=== PATIENT | female | born 1960 | race American Indian/Alaskan Native ===

== ENCOUNTER 2016-10-12 00:50 | Emergency (ER) | payer OTHER ==
[2016-10-12 02:03] LABS: Basophils % (Auto) 0.8 % (0.0-1.8); Eosinophils % (Auto) 1.5 % (0.0-4.3); Hematocrit 41.1 % (30.3-42.9); Hemoglobin 13.6 gm/dl (10.1-14.3); Mean Corpuscular HGB Conc 33 % (30-34); Mean Corpuscular Hemoglobin 29 pg (28-32); Mean Corpuscular Volume 89 fl (79-97); Platelet Count 182 K/mm3 (140-440); Red Blood Count 4.64 M/mm3 (3.65-5.03); Red Cell Distribution Width 13.9 % (13.2-15.2); White Blood Count 7.1 K/mm3 (4.5-11.0)
[2016-10-12 02:23] LABS: Anion Gap 18 mmol/L; BUN/Creatinine Ratio 25.55; Blood Urea Nitrogen 23 mg/dL (7-17); Calcium 8.9 mg/dL (8.4-10.2); Carbon Dioxide 22 mmol/L (22-30); Chloride 102.2 mmol/L (98-107); Glucose 108 mg/dL (65-100); Potassium 4.3 mmol/L (3.6-5.0); Sodium 138 mmol/L (137-145)
[2016-10-12 03:00] LABS: Bacteria,Urine 1+ /HPF (Negative); Bilirubin,Urine NEG (Negative); Blood,Urine MOD (Negative); Ketones,Urine NEG (Negative); Leukocyte Esterase,Urine LG (Negative); Mucus,Urine FEW /HPF; Nitrite,Urine NEG (Negative); Urobilinogen,Urine < 2.0 mg/dL (<2.0)
[2016-10-12] MEDS ORDERED: TORADOL IM ONE (06:34)
[2016-10-12] MEDS ORDERED: NORCO 5/325 PO ONE (06:34)
--- NOTE | 2016-10-12 07:05 | Emergency Department Report ---
HPI - HPI HPI: 55-year-old -Citizen Of [place] female comes in for complaint of left-sided flank pain 3 days. Patient reports that she has shortness of breath when she takes a deep breath because of the pain of her left flank. Patient reports that she took 2 muscle relaxer which helped a little bit and she took ibuprofen. Patient reports that she seemed a little bit of blood in her urine. Patient reports that the pain is colicky and it radiates from the left flank down to the left pubic area. She denies any fever no chills no nausea no vomiting. <DEISY ESPINAL - Last Filed: 10/12/16 06:53> <ANNETTE PEARSON - Last Filed: 10/12/16 09:58> - General Chief Complaint: Back Pain/Injury ED Past Medical Hx - Past Medical History Previous Medical History?: No Additional medical history: Uterine Fibroids - Surgical History Past Surgical History?: Yes Additional Surgical History: D&C, Tubal ligation, C-sections - Social History Smoking Status: Current Every Day Smoker Substance Use Type: None <DEISY ESPINAL - Last Filed: 10/12/16 06:53> <ANNETTE PEARSON - Last Filed: 10/12/16 09:58> - Medications Home Medications: Home Medications Medication Instructions Recorded Confirmed Last Taken Type Ibuprofen 800 mg PO TID 10/29/14 10/29/14 Unknown History Penicillin Vk 500 mg PO QID 10/29/14 10/29/14 Unknown History Robitussin Dm 10 ml PO QID 10/29/14 10/29/14 Unknown History Bacitracin [Bacitracin Ophth] 1 applicatio OP TID #1 tube 12/16/14 Unknown Rx Polyvinyl Alcohol [Artificial 2 drops OP Q1H #1 bottle 12/16/14 Unknown Rx Tears] Cephalexin [Keflex] 500 mg PO Q6HR #40 capsule 05/14/15 Unknown Rx HYDROcodone/APAP 5-325 [Glenoma 1 each PO Q6HR PRN #20 tablet 05/14/15 Unknown Rx 5-325 mg TAB] Ibuprofen [Motrin] 600 mg PO Q8H PRN #50 tablet 05/14/15 Unknown Rx HYDROcodone/APAP 5-325 [Glenoma 1 each PO Q6HR PRN #12 tablet 10/12/16 Unknown Rx 5/325] Ibuprofen [Motrin] 600 mg PO Q8H PRN #20 tablet 10/12/16 Unknown Rx Nitrofurantoin Toombs/M-Cryst 100 mg PO Q12HR #14 capsule 10/12/16 Unknown Rx [Macrobid CAP] ED Review of Systems ROS: Stated complaint: BACK PAIN Other details as noted in HPI <DEISY ESPINAL - Last Filed: 10/12/16 06:53> ROS: Stated complaint: BACK PAIN Other details as noted in HPI <ANNETTE PEARSON - Last Filed: 10/12/16 09:58> Physical Exam - Physical Exam Vital Signs: Vital Signs 10/12/16 10/12/16 01:22 06:46 Temperature 98.4 F 97.7 F Pulse Rate 81 80 Respiratory 18 18 Rate Blood Pressure 110/70 Blood Pressure 101/66 [Right] O2 Sat by Pulse 100 100 Oximetry Physical Exam: GENERAL: Alert and oriented x3, no apparent distress, +arthralgia Gait, HEAD: Head is normocephalic and a-traumatic. EYES: Extra ocular muscles are intact. Pupils are equal, round, and reactive to light and accommodation. EARS: symetrical, atraumatic, non tender, ear canal clear and moderate cerumen, tympanic membrance non inflamed. gross auditory nml bilaterally. NOSE: Nose symetrical, Nontender,Nares appeared normal. MOUTH:Mouth is well hydrated and without lesions. Tonsils nonerythematous or swollen, Uvula midline, Tongue not elevated. Mucous membranes are moist. Posterior pharynx clear, no exudate or lesions. Patent airways. NECK: Supple. Non edematous, No carotid bruits. No lymphadenopathy or thyromegaly. LUNGS: Symetrical with respiration, No wheezing, no rales or crackles, CTAB. HEART: S1, S2 present, regular rate and rhythm without murmur, no rubs, no gallops. ABDOMEN: No organomegaly was noted,Positive bowel sounds, soft, and non- distended. . Nontender to palpation on all Quadrants, + CVA tenderness on the left EXTREMITIES/MUSCULOSKELETAL: No cyanosis, clubbing, rash, lesions or edema. Full ROM bilaterally. UE/LE Pulses 2+ bilaterally. LE and UE 5+ strength bilaterally NEUROLOGIC: No focal Deficit, Cranial nerves II through XII are grossly intact. No loss of sensation, No facial droop, PSYCHIATRIC: Mood is congruent with affect, denies suicidal or homicidal ideations. SKIN: Warm and dry, No lesions, No ulceration or induration present <DEISY ESPINAL - Last Filed: 10/12/16 06:53> - Physical Exam Vital Signs: Vital Signs 10/12/16 10/12/16 01:22 06:46 Temperature 98.4 F 97.7 F Pulse Rate 81 80 Respiratory 18 18 Rate Blood Pressure 110/70 Blood Pressure 101/66 [Right] O2 Sat by Pulse 100 100 Oximetry <PEARSONANNETTE - Last Filed: 10/12/16 09:58> ED Course Vital Signs 10/12/16 10/12/16 01:22 06:46 Temperature 98.4 F 97.7 F Pulse Rate 81 80 Respiratory 18 18 Rate Blood Pressure 110/70 Blood Pressure 101/66 [Right] O2 Sat by Pulse 100 100 Oximetry <DEISY ESPINAL - Last Filed: 10/12/16 06:53> Vital Signs 10/12/16 10/12/16 01:22 06:46 Temperature 98.4 F 97.7 F Pulse Rate 81 80 Respiratory 18 18 Rate Blood Pressure 110/70 Blood Pressure 101/66 [Right] O2 Sat by Pulse 100 100 Oximetry <MICHELANNETTE Rogerio - Last Filed: 10/12/16 09:58> ED Medical Decision Making - Lab Data Result diagrams: 10/12/16 01:41 10/12/16 01:41 - Medical Decision Making She's been evaluated by this provider in fast track. Discussed with patient that I'm concerned that she may have a kidney stone. Discussed with patient that we will do CT of her abdomen and pelvic. We've given her Toradol and Glenoma for pain management. Patient verbalized understanding <DEISY ESPINAL - Last Filed: 10/12/16 06:53> - Lab Data Result diagrams: 10/12/16 01:41 10/12/16 01:41 - Medical Decision Making A/P: Left-sided renal mass/lesion, UTI 1-case discussed with Dr. Longo, I consulted [facility] on-call and spoke to Dr. Cuba regarding CT findings, as per Dr. Cuba will give patient follow up with urology this week for further imaging. Will treat patient symptomatically and will give Macrobid for UTI. Dr. Cuba urology practice number [phone], I gave this information to the patient and discussed clinical plan with her. Patient understands the importance of following up with urology and states she will call to make an appointment if she does not receive a call back from the urology service. As per Dr. Cuba they will call the patient back within 24 hours to give her an appointment this week. <ANNETTE PEARSON - Last Filed: 10/12/16 09:58> Critical care attestation.: If time is entered above; I have spent that time in minutes in the direct care of this critically ill patient, excluding procedure time. <DEISY ESPINAL - Last Filed: 10/12/16 06:53> Critical care attestation.: If time is entered above; I have spent that time in minutes in the direct care of this critically ill patient, excluding procedure time. <ANNETTE PEARSON - Last Filed: 10/12/16 09:58> ED Disposition <DEISY ESPINAL - Last Filed: 10/12/16 06:53> Is pt being admited?: No Does the pt Need Aspirin: No Time of Disposition: 09:56 <ANNETTE PEARSON - Last Filed: 10/12/16 09:58> Clinical Impression: Flank pain, acute UTI (urinary tract infection) Qualifiers: Urinary tract infection type: acute cystitis Hematuria presence: without hematuria Qualified Code(s): N30.00 - Acute cystitis without hematuria Disposition: DISCHARGED TO HOME OR SELFCARE Condition: Stable Instructions: Flank Pain (ED), Urinary Tract Infection in Women (ED) Additional Instructions: I instrcuted pt to f/u at [phone] / [facility] Dr. Cuba's service. Pt provided with CT report and CD with imaging Prescriptions: HYDROcodone/APAP 5-325 [Glenoma 5/325] 1 each PO Q6HR PRN #12 tablet PRN Reason: Pain Ibuprofen [Motrin] 600 mg PO Q8H PRN #20 tablet PRN Reason: Pain Nitrofurantoin Toombs/M-Cryst [Macrobid CAP] 100 mg PO Q12HR #14 capsule Referrals: JULISA JOY MD [Staff Physician] - 3-5 Days [facility] [Provider Group] - 3-5 Days Forms: Work/School Release Form(ED)
--- NOTE | 2016-10-12 07:37 | Cat Scan Report ---
FINAL REPORT PROCEDURE: CT ABDOMEN PELVIS WO CON TECHNIQUE: Computerized axial tomography of the abdomen and pelvis was performed without intravenous contrast. This study is performed without intravascular contrast material and its sensitivity for abdominal and pelvic pathology, including neoplasms, inflammation, abscess, free fluid, thrombosis, arterial dissection and infarction, is reduced compared with a contrast enhanced study. HISTORY: left flank pain with micro hematuria and WBC COMPARISON: No prior studies are available for comparison. FINDINGS: Visualized lower thorax: No significant abnormality. Liver: Normal size and attenuation. Spleen: Normal size and attenuation. Gallbladder and biliary system: Normal. Pancreas: Normal. Adrenals: There is adrenal hyperplasia bilaterally.. Kidneys: There are no kidney stones. There is an exophytic mass arising from the midpole of the left kidney measuring 2.7 centimeters. Malignancy cannot be excluded. Contrast-enhanced CT or MRI suggested. There are no ureteral stones. There is no hydronephrosis.. GI tract: There is moderate stool in the colon. There is no obstruction, colitis or mass. The stomach, small bowel and appendix are normal.. Lymph nodes and mesentery: Normal. Vasculature: Normal. Bladder: Normal. Reproductive organs: The uterus and ovaries are unremarkable.. Peritoneum: There is no ascites, free air, abscess or adenopathy.. Musculoskeletal structures: No significant abnormality. Other: None. IMPRESSION: There are no kidney stones. There is an exophytic mass arising from the midpole of the left kidney measuring 2.7 centimeters. Malignancy cannot be excluded. Contrast-enhanced CT or MRI suggested. There are no ureteral stones. There is no hydronephrosis.. There is moderate stool in the colon. There is no obstruction, colitis or mass. The stomach, small bowel and appendix are normal.. The uterus and ovaries are unremarkable.. There is no ascites, free air, abscess or adenopathy.. .
[2016-10-12] MEDS ORDERED: MORPHINE IM ONE (08:02)
[2016-10-12 09:59] VITALS: BP 122/78
== END 2016-10-12 10:17 | disposition home or self-care (01) ==
LOC: ED 00:50
DX: N30.00 Acute cystitis without hematuria (principal)
CPT/HCPCS: 36415; 74176; 80048; 81001; 85025; 96372; 99284; J1885; J2270